=== PATIENT | male | born 1975 | race Caucasian/White ===

== ENCOUNTER 2018-12-23 09:31 | Inpatient (IN) | payer MEDICARE, OTHER ==
[~2018-12-23] VITALS: Ht 172.7 cm; Wt 83.8 kg
[~2018-12-23 09:31] MED LIST: CALC600T2 PO; CLON1 PO; DIVA-76 PO; ERGO400C PO; LACO100 PO; LURA40 PO; MULT1CAP32 PO; PANT40TA25 PO; POTA8TAB4 PO; SODI1TAB4 PO
[2018-12-23] MEDS ORDERED: LISI-662 PO (09:46)
[2018-12-23] MEDS ORDERED: LOSA25TA41 PO (09:46)
[2018-12-23 11:31] LABS: APPEARANCE,URINE CLEAR (CLEAR); BILIRUBIN,URINE NEGATIVE (NEGATIVE); GLUCOSE, URINE (UA) NEGATIVE (NEGATIVE); KETONES,URINE NEGATIVE (NEGATIVE); LEUKOCYTE ESTERASE ,URINE NEGATIVE (NEGATIVE); NITRATE,URINE NEGATIVE (NEGATIVE); OCCULT BLOOD,URINE NEGATIVE (NEGATIVE); PH,URINE 7.5 (5.0-8.0); PROTEIN,URINE NEGATIVE (NEGATIVE); UROBILINOGEN,URINE 0.2 mg/dL (<=1.0)
[2018-12-23 11:45] LABS: BASOPHILS % (AUTO) 0.7 % (0.0-2.0); EOSINOPHILS % (AUTO) 1.5 % (1.0-6.0); HEMATOCRIT 41.9 % (41-53); HEMOGLOBIN 14.8 g/dL (13.5-17.5); LYMPHOCYTES # (AUTO) 1.5 K/uL (1.0-4.8); LYMPHOCYTES % (AUTO) 20.3 % (22.0-44.0); MEAN CORPUSCULAR HEMOGLOBIN 33.1 pg (26.0-34.0); MEAN CORPUSCULAR HGB CONC 35.3 G/dL (31.0-37.0); MEAN CORPUSCULAR VOLUME 94 fL (80-100); MONOCYTES # (AUTO) 0.6 K/uL (0.1-1.0); MONOCYTES % (AUTO) 8.7 % (2.0-9.0); NEUTROPHILS % (AUTO) 68.8 % (40.0-70.0); PLATELET COUNT (AUTO) 296 K/uL (150-450); RED BLOOD CELL COUNT(AUTO) 4.47 MIL/uL (4.50-5.90); RED CELL DISTRIBUTION WIDTH 13.3 % (11.5-14.5)
[2018-12-23 11:56] LABS: PROTHROMBIN TIME 10.2 SEC (9.4-11.6)
[2018-12-23 12:02] LABS: B-TYPE NATRIURETIC PEPTIDE 9 pg/mL (0-100)
[2018-12-23 12:29] LABS: ALANINE AMINOTRANSFERASE 31 U/L (12-78); ALBUMIN 3.8 g/dL (3.4-5.0); ALKALINE PHOSPHATASE 62 U/L (46-116); ANION GAP 7 mmol/L (8-16); ASPARTATE AMINOTRANSFERASE 27 U/L (15-37); BILIRUBIN,TOTAL 0.3 mg/dL (0.1-1.0); CALCIUM, TOTAL 8.3 mg/dL (8.8-10.5); CARBON DIOXIDE 27 mmol/L (22-29); CHLORIDE 87 mmol/L (98-107); CREATINE KINASE, TOTAL ONLY 243 U/L (39-308); CREATININE 0.73 mg/dL (0.60-1.30); GLOMERULAR FILTR. RATE CALC > 60 mL/min (>60); GLUCOSE,RANDOM 91 mg/dL (70-110); POTASSIUM 4.5 mmol/L (3.5-5.1); TOTAL PROTEIN, SERUM 7.7 g/dL (6.4-8.2); UREA NITROGEN, BLOOD 4 mg/dL (7-18)
[2018-12-23 12:32] LABS: SODIUM SERUM 121 mmol/L (136-145)
[2018-12-23] MEDS ORDERED: SODIUM CHLORIDE 0.9% 1,000 ML IV ONE (14:15)
[2018-12-23 17:09] LABS: ANION GAP 7 mmol/L (8-16); CALCIUM, TOTAL 8.8 mg/dL (8.8-10.5); CARBON DIOXIDE 28 mmol/L (22-29); CHLORIDE 94 mmol/L (98-107); CREATININE 0.72 mg/dL (0.60-1.30); GLOMERULAR FILTR. RATE CALC > 60 mL/min (>60); GLUCOSE,RANDOM 111 mg/dL (70-110); SODIUM SERUM 129 mmol/L (136-145); UREA NITROGEN, BLOOD 6 mg/dL (7-18)
[2018-12-23 17:15] VITALS: BP 127/73
[2018-12-23 19:40] VITALS: BP 129/74
[2018-12-23] MEDS ORDERED: DIVA125C PO (20:12)
[2018-12-23 23:52] VITALS: BP 126/72
[2018-12-24] MEDS ORDERED: ZOLPIDEM TARTRATE 5 MG TABLET PO PRN (01:15)
[2018-12-24] MEDS ORDERED: ONDANSETRON HCL 4 MG/2 ML VIAL IVP PRN (01:15)
[2018-12-24] MEDS ORDERED: SODIUM CHLORIDE 0.9% 1,000 ML IV SCH (01:15)
[2018-12-24] MEDS ORDERED: ACETAMINOPHEN 325 MG TABLET PO PRN (01:15)
[2018-12-24] MEDS ORDERED: MORPHINE SULFATE 2 MG/ML SYRINGE IVP PRN (01:15)
[2018-12-24] MEDS ORDERED: IPRATROPIUM BROMIDE 0.5 MG/2.5 ML NEB SOLUTION NEB PRN (01:15)
[2018-12-24] MEDS ORDERED: HYDROCODONE/ACETAMINOPHEN 5-325 MG TABLET PO PRN (01:15)
[2018-12-24] MEDS ORDERED: ALBUTEROL SULFATE 2.5 MG/0.5 ML NEB SOLUTION NEB PRN (01:15)
[2018-12-24] MEDS ORDERED: MAGNESIUM HYDROXIDE SUSPENSION 30 ML UDCUP PO PRN (01:15)
[2018-12-24] MEDS ORDERED: BISACODYL 10 MG RECTAL RECTAL SUPPOSITORY PR PRN (01:15)
[2018-12-24 03:30] VITALS: BP 128/76
[2018-12-24 05:52] LABS: ANION GAP 2 mmol/L (8-16); CALCIUM, TOTAL 8.7 mg/dL (8.8-10.5); CARBON DIOXIDE 31 mmol/L (22-29); CHLORIDE 99 mmol/L (98-107); CREATININE 0.86 mg/dL (0.60-1.30); GLOMERULAR FILTR. RATE CALC > 60 mL/min (>60); GLUCOSE,RANDOM 93 mg/dL (70-110); PHOSPHORUS 3.5 mg/dL (2.5-4.9); POTASSIUM 5.4 mmol/L (3.5-5.1); SODIUM SERUM 132 mmol/L (136-145); THYROID STIMULATING HORMONE 1.83 uIU/mL (0.36-3.74); UREA NITROGEN, BLOOD 10 mg/dL (7-18)
[2018-12-24 05:57] LABS: SODIUM,URINE RANDOM 16 mmol/l (20-110)
[2018-12-24 06:01] LABS: OSMOLALITY,URINE 98 mOS/kg (50-1200)
[2018-12-24 07:30] VITALS: BP 113/59
[2018-12-24] MEDS: HEPARIN SODIUM,PORCINE 5,000 UNITS/ML VIAL SQ SCH ×2 (07:42→17:23)
[2018-12-24] MEDS: PANTOPRAZOLE SODIUM 40 MG/VIAL IVP SCH (07:42)
[2018-12-24] MEDS: ClonazePAM 1 MG TABLET PO SCH ×2 (07:42→20:47)
[2018-12-24] MEDS: LOSARTAN POTASSIUM 50 MG TABLET PO SCH (07:42)
[2018-12-24] MEDS: MULTIVITAMINS, THERAPEUTIC TABLET PO SCH (07:42)
[2018-12-24] MEDS: CALCIUM CARBONATE 648 MG TABLET PO SCH ×2 (07:43→20:47)
[2018-12-24] MEDS: CHOLECALCIFEROL (VIT D3) 400 UNITS TABLET PO SCH (07:43)
[2018-12-24] MEDS: DIVALPROEX SODIUM 250 MG DR TABLET PO SCH (07:43)
[2018-12-24] MEDS: DOCUSATE SODIUM 100 MG CAPSULE PO SCH ×2 (07:43→20:47)
[2018-12-24] MEDS ORDERED: DEXTROSE 5%-WATER 1,000 ML IV SCH (08:10)
[2018-12-24] MEDS ORDERED: SODIUM CHLORIDE 1 GM TABLET PO SCH (09:00)
[2018-12-24] MEDS ORDERED: LISINOPRIL 20 MG TABLET PO SCH (09:00)
[2018-12-24] MEDS: LACOSAMIDE 100 MG TABLET PO SCH ×2 (09:51→20:47)
[2018-12-24] MEDS ORDERED: LURA60TA PO (10:46)
[2018-12-24] MEDS ORDERED: DIVA-76 PO (10:46)
[2018-12-24] MEDS ORDERED: LOSA50TA64 PO (10:46)
[2018-12-24 11:27] VITALS: BP 149/85
[2018-12-24 12:33] LABS: ANION GAP 6 mmol/L (8-16); CALCIUM, TOTAL 8.7 mg/dL (8.8-10.5); CARBON DIOXIDE 27 mmol/L (22-29); CHLORIDE 99 mmol/L (98-107); CREATININE 0.79 mg/dL (0.60-1.30); GLOMERULAR FILTR. RATE CALC > 60 mL/min (>60); GLUCOSE,RANDOM 105 mg/dL (70-110); POTASSIUM 4.3 mmol/L (3.5-5.1); SODIUM SERUM 132 mmol/L (136-145); UREA NITROGEN, BLOOD 7 mg/dL (7-18)
[2018-12-24 16:39] VITALS: BP 119/66
[2018-12-24] MEDS ORDERED: LURASIDONE HCL 60 MG PO SCH (18:00)
[2018-12-24 20:39] VITALS: BP 118/58
[2018-12-24] MEDS ORDERED: DIVALPROEX SODIUM 250 MG DR TABLET PO SCH (21:00)
[2018-12-25] MEDS: HEPARIN SODIUM,PORCINE 5,000 UNITS/ML VIAL SQ SCH ×2 (00:35→07:55)
[2018-12-25 05:50] VITALS: BP 122/65
[2018-12-25 07:43] VITALS: BP 127/62
[2018-12-25] MEDS: PANTOPRAZOLE SODIUM 40 MG/VIAL IVP SCH (07:55)
[2018-12-25] MEDS: LACOSAMIDE 100 MG TABLET PO SCH (07:56)
[2018-12-25] MEDS: ClonazePAM 1 MG TABLET PO SCH (08:00)
[2018-12-25] MEDS: CHOLECALCIFEROL (VIT D3) 400 UNITS TABLET PO SCH (08:00)
[2018-12-25] MEDS: LOSARTAN POTASSIUM 50 MG TABLET PO SCH (08:00)
[2018-12-25] MEDS: DIVALPROEX SODIUM 250 MG DR TABLET PO SCH (08:01)
[2018-12-25] MEDS: MULTIVITAMINS, THERAPEUTIC TABLET PO SCH (08:01)
[2018-12-25] MEDS: DOCUSATE SODIUM 100 MG CAPSULE PO SCH (08:01)
[2018-12-25] MEDS: CALCIUM CARBONATE 648 MG TABLET PO SCH (08:03)
[2018-12-25 09:40] LABS: ANION GAP 4 mmol/L (8-16); CALCIUM, TOTAL 8.9 mg/dL (8.8-10.5); CARBON DIOXIDE 31 mmol/L (22-29); CHLORIDE 97 mmol/L (98-107); CREATININE 0.83 mg/dL (0.60-1.30); GLOMERULAR FILTR. RATE CALC > 60 mL/min (>60); GLUCOSE,RANDOM 78 mg/dL (70-110); PHOSPHORUS 3.2 mg/dL (2.5-4.9); POTASSIUM 4.1 mmol/L (3.5-5.1); SODIUM SERUM 132 mmol/L (136-145); UREA NITROGEN, BLOOD 8 mg/dL (7-18)
[2018-12-25 12:31] VITALS: BP 127/74
== END 2018-12-25 16:00 | disposition home or self-care (01) | DRG 640 ==
LOC: EMS 09:31 → 6N 15:48
PROVIDERS: ADMIT Internal Medicine; ATTEND Hospitalist
DX: R63.1 Polydipsia (principal); G93.41 Metabolic encephalopathy; E87.1 Hypo-osmolality and hyponatremia; F84.0 Autistic disorder; I10 Essential (primary) hypertension; G40.909 Epilepsy, unspecified, not intractable, without status epilepticus; E87.5 Hyperkalemia; F91.9 Conduct disorder, unspecified; R62.50 Unspecified lack of expected normal physiological development in childhood; Z79.899 Other long term (current) drug therapy
CPT/HCPCS: 82533; 83735; 83930; 83935; 84100; 84300; 84443; 93005; C9113; G0378; J1644; J7030; J7060

== ENCOUNTER 2019-10-06 19:00 | Inpatient (IN) | payer MEDICARE, OTHER ==
[~2019-10-06] VITALS: Ht 170.2 cm; Wt 86.9 kg
[~2019-10-06 19:00] MED LIST changes: -CLON1 PO; +CLON1TAB13 PO; +LOSA50TA64 PO; -LURA40 PO; +LURA60TA PO; -PANT40TA25 PO; -POTA8TAB4 PO; -SODI1TAB4 PO
[2019-10-06 20:33] LABS: BASOPHILS % (AUTO) 0.8 % (0.0-2.0); EOSINOPHILS % (AUTO) 1.6 % (1.0-6.0); HEMATOCRIT 39.4 % (41-53); LYMPHOCYTES # (AUTO) 1.4 K/uL (1.0-4.8); LYMPHOCYTES % (AUTO) 17.7 % (22.0-44.0); MEAN CORPUSCULAR HEMOGLOBIN 34.1 pg (26.0-34.0); MEAN CORPUSCULAR HGB CONC 35.5 G/dL (31.0-37.0); MEAN CORPUSCULAR VOLUME 96 fL (80-100); MONOCYTES # (AUTO) 0.8 K/uL (0.1-1.0); MONOCYTES % (AUTO) 9.4 % (2.0-9.0); NEUTROPHILS # (AUTO) 5.7 K/uL (1.8-7.7); NEUTROPHILS % (AUTO) 70.5 % (40.0-70.0); PLATELET COUNT (AUTO) 321 K/uL (150-450); RED CELL DISTRIBUTION WIDTH 12.7 % (11.5-14.5)
[2019-10-06 20:42] LABS: ANION GAP 5 mmol/L (8-16); CALCIUM, TOTAL 8.5 mg/dL (8.8-10.5); CARBON DIOXIDE 30 mmol/L (22-29); CHLORIDE 94 mmol/L (98-107); CREATININE 1.01 mg/dL (0.60-1.30); GLOMERULAR FILTR. RATE CALC > 60 mL/min (>60); GLUCOSE,RANDOM 131 mg/dL (70-110); POTASSIUM 4.1 mmol/L (3.5-5.1); SODIUM SERUM 129 mmol/L (136-145); UREA NITROGEN, BLOOD 6 mg/dL (7-18)
[2019-10-06 20:48] LABS: ALANINE AMINOTRANSFERASE 23 U/L (12-78); ALBUMIN 3.4 g/dL (3.4-5.0); ALKALINE PHOSPHATASE 55 U/L (46-116); ASPARTATE AMINOTRANSFERASE 18 U/L (15-37); BILIRUBIN,TOTAL 0.2 mg/dL (0.1-1.0); TOTAL PROTEIN, SERUM 7.1 g/dL (6.4-8.2); VALPROIC ACID 44 mcg/mL (50-100)
[2019-10-06] MEDS ORDERED: SODIUM CHLORIDE 0.9% 1,000 ML IV ONE ×2 (22:30→23:15)
[2019-10-06] MEDS ORDERED: VALPROATE SODIUM 750 MG in DEXTROSE 5%-WATER 100 ML IV ONE (22:30)
[2019-10-06 22:31] LABS: AMPHET/METH SCREEN,URINE NEGATIVE (NEGATIVE); BARBITURATE SCREEN, URINE NEGATIVE (NEGATIVE); BENZODIAZEPINES SCREEN,URINE NEGATIVE (NEGATIVE); CANNABINOID SCREEN,URINE NEGATIVE (NEGATIVE); COCAINE SCREEN,URINE NEGATIVE (NEGATIVE); METHADONE SCREEN, URINE NEGATIVE (NEGATIVE); OPIATE SCREEN,URINE NEGATIVE (NEGATIVE)
[2019-10-06 22:38] LABS: PHENCYCLIDINE SCREEN,URINE NEGATIVE (NEGATIVE)
[2019-10-06 22:51] LABS: OSMOLALITY,URINE 129 mOS/kg (50-1200)
[2019-10-06 22:55] LABS: SODIUM,URINE RANDOM 23 mmol/l (20-110)
[2019-10-06 22:58] LABS: OSMOLALITY 271 mOS/kg (270-310)
[2019-10-06] MEDS ORDERED: ZOLPIDEM TARTRATE 5 MG TABLET PO PRN (23:00)
[2019-10-06] MEDS ORDERED: ONDANSETRON HCL 4 MG/2 ML VIAL IVP PRN (23:00)
[2019-10-06] MEDS ORDERED: 0.9% SODIUM CHLORIDE 10 ML SYRINGE IVP PRN (23:00)
[2019-10-06] MEDS ORDERED: ACETAMINOPHEN 325 MG TABLET PO PRN (23:00)
[2019-10-06] MEDS ORDERED: ClonazePAM 1 MG TABLET PO SCH (23:00)
[2019-10-06] MEDS ORDERED: SODIUM CHLORIDE 0.9% 1,000 ML IV SCH (23:00)
[2019-10-06] MEDS ORDERED: MAGNESIUM SULFATE 4 GM/WATER 100 ML IV PRN (23:15)
[2019-10-06] MEDS ORDERED: MAGNESIUM SULFATE 2 GM/WATER 50 ML IV PRN (23:15)
[2019-10-06] MEDS ORDERED: POTASSIUM CHL 10 MEQ/WATER 50 ML IV PRN (23:15)
[2019-10-06] MEDS ORDERED: POTASSIUM CHLORIDE 20 MEQ ER TABLET PO PRN (23:15)
[2019-10-06] MEDS ORDERED: MAGNESIUM OXIDE 400 MG TABLET PO PRN (23:15)
[2019-10-06] MEDS ORDERED: LORazepam 2 MG/ML VIAL IVP PRN (23:30)
[2019-10-06] MEDS: DIVALPROEX SODIUM 250 MG DR TABLET PO SCH (23:59)
[2019-10-07 00:54] VITALS: BP 110/63
[2019-10-07] MEDS: HEPARIN SODIUM,PORCINE 5,000 UNITS/ML VIAL SQ SCH ×3 (01:18→16:10)
[2019-10-07] MEDS: LACOSAMIDE 100 MG TABLET PO SCH ×3 (01:18→20:20)
[2019-10-07] MEDS: CALCIUM OYSTER SHELL 500 MG TABLET PO SCH ×3 (01:18→21:00)
[2019-10-07 03:35] VITALS: BP 100/54
[2019-10-07 06:34] LABS: BASOPHILS % (AUTO) 0.5 % (0.0-2.0); EOSINOPHILS % (AUTO) 0.9 % (1.0-6.0); HEMATOCRIT 39.3 % (41-53); HEMOGLOBIN 13.8 g/dL (13.5-17.5); LYMPHOCYTES # (AUTO) 1.8 K/uL (1.0-4.8); LYMPHOCYTES % (AUTO) 21.6 % (22.0-44.0); MEAN CORPUSCULAR HEMOGLOBIN 34.4 pg (26.0-34.0); MEAN CORPUSCULAR HGB CONC 35.1 G/dL (31.0-37.0); MEAN CORPUSCULAR VOLUME 98 fL (80-100); MONOCYTES # (AUTO) 0.7 K/uL (0.1-1.0); MONOCYTES % (AUTO) 8.2 % (2.0-9.0); NEUTROPHILS # (AUTO) 5.7 K/uL (1.8-7.7); NEUTROPHILS % (AUTO) 68.8 % (40.0-70.0); PLATELET COUNT (AUTO) 347 K/uL (150-450); RED BLOOD CELL COUNT(AUTO) 4.01 MIL/uL (4.50-5.90); RED CELL DISTRIBUTION WIDTH 13.3 % (11.5-14.5)
[2019-10-07 06:56] LABS: ANION GAP 8 mmol/L (8-16); CALCIUM, TOTAL 8.1 mg/dL (8.8-10.5); CARBON DIOXIDE 27 mmol/L (22-29); CHLORIDE 100 mmol/L (98-107); CREATININE 0.99 mg/dL (0.60-1.30); GLOMERULAR FILTR. RATE CALC > 60 mL/min (>60); GLUCOSE,RANDOM 103 mg/dL (70-110); POTASSIUM 4.3 mmol/L (3.5-5.1); SODIUM SERUM 135 mmol/L (136-145); UREA NITROGEN, BLOOD 6 mg/dL (7-18)
[2019-10-07] MEDS ORDERED: LORazepam 2 MG/ML VIAL IVP PRN ×2 (08:00→11:15)
[2019-10-07 08:25] VITALS: BP 113/56
[2019-10-07] MEDS: ClonazePAM 0.5 MG TABLET PO SCH ×2 (08:43→20:19)
[2019-10-07] MEDS: LOSARTAN POTASSIUM 50 MG TABLET PO SCH (08:43)
[2019-10-07] MEDS: PANTOPRAZOLE SODIUM 40 MG DR TABLET PO SCH (08:43)
[2019-10-07] MEDS: LURASIDONE HCL 40 MG TABLET PO SCH ×2 (08:44→17:22)
[2019-10-07] MEDS: CHOLECALCIFEROL (VIT D3) 400 UNITS TABLET PO SCH (08:44)
[2019-10-07] MEDS: DOCUSATE SODIUM 100 MG CAPSULE PO SCH ×2 (08:44→20:20)
[2019-10-07] MEDS: DIVALPROEX SODIUM 250 MG DR TABLET PO SCH ×2 (08:44→21:28)
[2019-10-07] MEDS ORDERED: CALC-916 PO (10:48)
[2019-10-07 10:54] VITALS: BP 117/66
[2019-10-07 16:08] VITALS: BP 137/78
[2019-10-07 20:15] VITALS: BP 125/75
[2019-10-08 00:18] VITALS: BP 115/63
[2019-10-08] MEDS: HEPARIN SODIUM,PORCINE 5,000 UNITS/ML VIAL SQ SCH ×2 (00:37→09:04)
[2019-10-08 05:06] VITALS: BP 107/70
[2019-10-08 07:14] VITALS: BP 124/71
[2019-10-08] MEDS: CALCIUM OYSTER SHELL 500 MG TABLET PO SCH (09:02)
[2019-10-08] MEDS: DOCUSATE SODIUM 100 MG CAPSULE PO SCH (09:02)
[2019-10-08] MEDS: CHOLECALCIFEROL (VIT D3) 400 UNITS TABLET PO SCH (09:02)
[2019-10-08] MEDS: LURASIDONE HCL 40 MG TABLET PO SCH (09:02)
[2019-10-08] MEDS: ClonazePAM 0.5 MG TABLET PO SCH (09:03)
[2019-10-08] MEDS: LOSARTAN POTASSIUM 50 MG TABLET PO SCH (09:03)
[2019-10-08] MEDS: DIVALPROEX SODIUM 250 MG DR TABLET PO SCH (09:04)
[2019-10-08] MEDS: LACOSAMIDE 100 MG TABLET PO SCH (09:04)
[2019-10-08] MEDS: PANTOPRAZOLE SODIUM 40 MG DR TABLET PO SCH (09:04)
[2019-10-08 10:10] LABS: BASOPHILS % (AUTO) 0.6 % (0.0-2.0); EOSINOPHILS % (AUTO) 1.6 % (1.0-6.0); HEMATOCRIT 42.1 % (41-53); HEMOGLOBIN 14.5 g/dL (13.5-17.5); LYMPHOCYTES # (AUTO) 2.4 K/uL (1.0-4.8); MEAN CORPUSCULAR HEMOGLOBIN 33.9 pg (26.0-34.0); MEAN CORPUSCULAR HGB CONC 34.4 G/dL (31.0-37.0); MEAN CORPUSCULAR VOLUME 99 fL (80-100); MONOCYTES # (AUTO) 0.7 K/uL (0.1-1.0); MONOCYTES % (AUTO) 9.8 % (2.0-9.0); PLATELET COUNT (AUTO) 369 K/uL (150-450); RED BLOOD CELL COUNT(AUTO) 4.26 MIL/uL (4.50-5.90); RED CELL DISTRIBUTION WIDTH 13.4 % (11.5-14.5)
[2019-10-08 10:15] LABS: ALANINE AMINOTRANSFERASE 24 U/L (12-78); ALBUMIN 3.4 g/dL (3.4-5.0); ALKALINE PHOSPHATASE 58 U/L (46-116); ANION GAP 4 mmol/L (8-16); ASPARTATE AMINOTRANSFERASE 16 U/L (15-37); BILIRUBIN,TOTAL 0.3 mg/dL (0.1-1.0); CALCIUM, TOTAL 8.6 mg/dL (8.8-10.5); CARBON DIOXIDE 30 mmol/L (22-29); CHLORIDE 100 mmol/L (98-107); CREATININE 1.08 mg/dL (0.60-1.30); GLOMERULAR FILTR. RATE CALC > 60 mL/min (>60); GLUCOSE,RANDOM 93 mg/dL (70-110); POTASSIUM 4.3 mmol/L (3.5-5.1); SODIUM SERUM 134 mmol/L (136-145); TOTAL PROTEIN, SERUM 7.3 g/dL (6.4-8.2); UREA NITROGEN, BLOOD 10 mg/dL (7-18)
[2019-10-08] MEDS ORDERED: DIVA250T4 PO (10:36)
[2019-10-08 11:09] VITALS: BP 126/70
[2019-10-08 14:06] LABS: THYROID STIMULATING HORMONE 3.66 uIU/mL (0.36-3.74)
== END 2019-10-08 13:35 | disposition home or self-care (01) | DRG 100 ==
LOC: EMS 19:02 → 5N 23:36
PROVIDERS: ADMIT Internal Medicine; ATTEND Internal Medicine
DX: G40.901 Epilepsy, unspecified, not intractable, with status epilepticus (principal); G93.41 Metabolic encephalopathy; E87.1 Hypo-osmolality and hyponatremia; F84.0 Autistic disorder; R63.1 Polydipsia; I10 Essential (primary) hypertension; Z79.899 Other long term (current) drug therapy
CPT/HCPCS: 70450; 72125; 83540; 83735; 83930; 83935; 84300; 84443; 95816; 96365; G0480; J1644; J3490; J7030; J7060